=== PATIENT | female | born 1980 | race Caucasian/White ===

== ENCOUNTER 2018-04-13 18:25 | Outpatient (CLI) | payer MEDICAID ==
[2018-04-13 19:27] LABS: ADD UMIC NO; UR ASCORBIC ACID NEGATIVE (NEGATIVE); UR BACTERIA FEW /HPF (NONE SEEN); UR BILIRUBIN (Dip) NEGATIVE (NEGATIVE); UR BLOOD (Dip) NEGATIVE (NEGATIVE); UR CLARITY SLIGHTLY CLOUDY (CLEAR); UR COLOR STRAW (YELLOW); UR GLUCOSE (Dip) 1+ mg/dL (NEGATIVE); UR KETONES (Dip) NEGATIVE (NEGATIVE); UR LEUKOCYTE ESTERASE (Dip) NEGATIVE Leu/ul (NEGATIVE); UR NITRITE (Dip) NEGATIVE (NEGATIVE); UR RBC 0 /HPF (0-5); UR SPECIFIC GRAVITY (Dip) 1.005 (1.003-1.030); UR SQUAMOUS EPITHELIAL CELL MODERATE /HPF (FEW); UR TOTAL PROTEIN (Dip) NEGATIVE (NEGATIVE); UR UROBILINOGEN (Dip) NEGATIVE (NEGATIVE); UR WBC 2 /HPF (0-5)
[2018-04-13 20:29] LABS: ADD MAN DIFF? NO
[2018-04-13 20:32] LABS: BASOPHILS % 0.3 % (0.0-2.0); EOSINOPHILS # 0.1 10^3/ul (0.0-0.5); EOSINOPHILS % 0.9 % (0.0-7.0); HEMATOCRIT 36.7 % (37.0-47.0); HEMOGLOBIN 11.8 g/dl (12.0-16.0); LYMPHOCYTES # 1.3 10^3/ul (0.8-2.9); LYMPHOCYTES % 18.9 % (15.0-51.0); MEAN CORPUSCULAR HEMOGLOBIN 28.9 pg (29.0-33.0); MEAN CORPUSCULAR HGB CONC 32.2 g/dl (32.0-37.0); MEAN CORPUSCULAR VOLUME 89.7 fl (82.0-101.0); MEAN PLATELET VOLUME 11.6 fl (7.4-10.4); MONOCYTE # 0.6 10^3/ul (0.3-0.9); MONOCYTES % 9.7 % (0.0-11.0); NEUTROPHIL # 4.6 10^3/ul (1.6-7.5); NEUTROPHILS % 69.7 % (39.0-77.0); PLATELET COUNT 198 10^3/UL (140-415); RED BLOOD COUNT 4.09 10^6/ul (4.20-5.40); RED CELL DISTRIBUTION WIDTH 12.5 % (11.5-14.5)
[2018-04-13 20:32] LABS: WHITE BLOOD COUNT 6.6 10^3/ul (4.8-10.8)
[2018-04-13 20:50] LABS: INR 0.83; PROTIME 11.5 Sec (11.9-14.9); PT RATIO 0.9
[2018-04-13 20:51] LABS: ALANINE AMINOTRANSFERASE 7 IU/L (13-69); ALBUMIN 3.5 g/dl (3.3-4.9); ALBUMIN/GLOBULIN RATIO 1.09; ALKALINE PHOSPHATASE 222 IU/L (42-121); ANION GAP 11 (5-13); ASPARTATE AMINO TRANSFERASE 29 IU/L (15-46); BILIRUBIN,INDIRECT 0.1 mg/dl (0-1.1); BILIRUBIN,TOTAL 0.1 mg/dl (0.2-1.3); BLOOD UREA NITROGEN 8 mg/dl (7-20); CALCIUM 9.7 mg/dl (8.4-10.2); CARBON DIOXIDE 20 mmol/L (21-31); CHLORIDE 105 mmol/L (97-110); CREATININE 0.65 mg/dl (0.44-1.00); Estimated GFR > 60 mL/min (>60); GLUCOSE 109 mg/dl (70-220); PARTIAL THROMBOPLASTIN TIME 25.2 Sec (23.0-35.0); POTASSIUM 3.7 mmol/L (3.5-5.1); SODIUM 136 mmol/L (135-144); TOTAL PROTEIN 6.7 g/dl (6.1-8.1); URIC ACID 5.3 mg/dl (3.1-7.9)
== END 2018-04-13 21:55 | disposition home or self-care (01) ==
LOC: OBT 18:25 → L-D 18:28 → OBT 21:55
DX: O13.3 Gestational [pregnancy-induced] hypertension without significant proteinuria, third trimester (principal); O09.513 Supervision of elderly primigravida, third trimester
CPT/HCPCS: 76818; 80053; 81001; 81003; 84560; 85025; 85610; 85730

== ENCOUNTER 2018-04-20 18:06 | Inpatient (IN) | payer MEDICAID ==
[2018-04-20 19:02] LABS: ADD MAN DIFF? NO
[2018-04-20 19:03] LABS: BASOPHILS % 0.2 % (0.0-2.0); EOSINOPHILS # 0.1 10^3/ul (0.0-0.5); EOSINOPHILS % 1.6 % (0.0-7.0); HEMATOCRIT 36.9 % (37.0-47.0); HEMOGLOBIN 11.6 g/dl (12.0-16.0); LYMPHOCYTES # 1.1 10^3/ul (0.8-2.9); LYMPHOCYTES % 20.3 % (15.0-51.0); MEAN CORPUSCULAR HEMOGLOBIN 28.7 pg (29.0-33.0); MEAN CORPUSCULAR HGB CONC 31.4 g/dl (32.0-37.0); MEAN CORPUSCULAR VOLUME 91.3 fl (82.0-101.0); MEAN PLATELET VOLUME 11.7 fl (7.4-10.4); MONOCYTE # 0.5 10^3/ul (0.3-0.9); NEUTROPHIL # 3.7 10^3/ul (1.6-7.5); NEUTROPHILS % 68.4 % (39.0-77.0); PLATELET COUNT 186 10^3/UL (140-415); RED BLOOD COUNT 4.04 10^6/ul (4.20-5.40); RED CELL DISTRIBUTION WIDTH 12.7 % (11.5-14.5)
[2018-04-20 19:03] LABS: WHITE BLOOD COUNT 5.5 10^3/ul (4.8-10.8)
[2018-04-20 19:21] LABS: ADD UMIC YES; UR ASCORBIC ACID 20 mg/dL (NEGATIVE); UR BACTERIA FEW /HPF (NONE SEEN); UR BILIRUBIN (Dip) NEGATIVE (NEGATIVE); UR BLOOD (Dip) NEGATIVE (NEGATIVE); UR CLARITY CLOUDY (CLEAR); UR COLOR YELLOW (YELLOW); UR GLUCOSE (Dip) 1+ mg/dL (NEGATIVE); UR KETONES (Dip) NEGATIVE (NEGATIVE); UR LEUKOCYTE ESTERASE (Dip) 1+ Leu/ul (NEGATIVE); UR NITRITE (Dip) NEGATIVE (NEGATIVE); UR RBC 1 /HPF (0-5); UR SQUAMOUS EPITHELIAL CELL MANY /HPF (FEW); UR TOTAL PROTEIN (Dip) NEGATIVE (NEGATIVE); UR UROBILINOGEN (Dip) NEGATIVE (NEGATIVE); UR WBC 6 /HPF (0-5)
[2018-04-20 19:22] LABS: URIC ACID 5.3 mg/dl (3.1-7.9)
[2018-04-20 19:23] LABS: ALANINE AMINOTRANSFERASE 13 IU/L (13-69); ALBUMIN 3.3 g/dl (3.3-4.9); ALKALINE PHOSPHATASE 199 IU/L (42-121); ANION GAP 6 (5-13); ASPARTATE AMINO TRANSFERASE 26 IU/L (15-46); BILIRUBIN,INDIRECT 0.1 mg/dl (0-1.1); BILIRUBIN,TOTAL 0.1 mg/dl (0.2-1.3); BLOOD UREA NITROGEN 9 mg/dl (7-20); CALCIUM 9.3 mg/dl (8.4-10.2); CARBON DIOXIDE 22 mmol/L (21-31); CHLORIDE 111 mmol/L (97-110); CREATININE 0.77 mg/dl (0.44-1.00); Estimated GFR > 60 mL/min (>60); GLUCOSE 139 mg/dl (70-220); SODIUM 139 mmol/L (135-144); TOTAL PROTEIN 6.6 g/dl (6.1-8.1)
[2018-04-20] MEDS ORDERED: AL HYDROX/MG HYDROX/SIMETH 30 ML CUP PO (21:30)
[2018-04-20] MEDS ORDERED: ACETAMINOPHEN 325 MG TAB PO (21:30)
[2018-04-21 08:33] LABS: ADD MAN DIFF? NO
[2018-04-21 08:39] LABS: BASOPHILS % 0.3 % (0.0-2.0); EOSINOPHILS # 0.1 10^3/ul (0.0-0.5); EOSINOPHILS % 1.5 % (0.0-7.0); HEMATOCRIT 36.7 % (37.0-47.0); HEMOGLOBIN 11.6 g/dl (12.0-16.0); LYMPHOCYTES # 1.4 10^3/ul (0.8-2.9); LYMPHOCYTES % 23.1 % (15.0-51.0); MEAN CORPUSCULAR HEMOGLOBIN 29.1 pg (29.0-33.0); MEAN CORPUSCULAR HGB CONC 31.6 g/dl (32.0-37.0); MONOCYTE # 0.5 10^3/ul (0.3-0.9); MONOCYTES % 7.8 % (0.0-11.0); NEUTROPHILS % 66.8 % (39.0-77.0); PLATELET COUNT 197 10^3/UL (140-415); RED BLOOD COUNT 3.99 10^6/ul (4.20-5.40); RED CELL DISTRIBUTION WIDTH 12.7 % (11.5-14.5)
[2018-04-21 08:39] LABS: WHITE BLOOD COUNT 5.9 10^3/ul (4.8-10.8)
[2018-04-21 09:00] LABS: ALANINE AMINOTRANSFERASE 12 IU/L (13-69); ALBUMIN 3.3 g/dl (3.3-4.9); ALKALINE PHOSPHATASE 212 IU/L (42-121); ANION GAP 6 (5-13); ASPARTATE AMINO TRANSFERASE 26 IU/L (15-46); BILIRUBIN,INDIRECT 0.2 mg/dl (0-1.1); BILIRUBIN,TOTAL 0.2 mg/dl (0.2-1.3); BLOOD UREA NITROGEN 10 mg/dl (7-20); CALCIUM 9.2 mg/dl (8.4-10.2); CARBON DIOXIDE 19 mmol/L (21-31); CHLORIDE 111 mmol/L (97-110); CREATININE 0.85 mg/dl (0.44-1.00); Estimated GFR > 60 mL/min (>60); GLUCOSE 75 mg/dl (70-220); POTASSIUM 4.1 mmol/L (3.5-5.1); SODIUM 136 mmol/L (135-144); TOTAL PROTEIN 6.6 g/dl (6.1-8.1); URIC ACID 5.6 mg/dl (3.1-7.9)
[2018-04-21] MEDS: PRENATAL VITAMIN PO (09:00)
[2018-04-21] MEDS ORDERED: OXYTOCIN 30 UNITS/LR 500 ML IV (12:00)
[2018-04-21] MEDS ORDERED: BUTORPHANOL 1 MG INJ IV (12:00)
[2018-04-21] MEDS ORDERED: BUTORPHANOL 2 MG INJ IV (12:00)
[2018-04-21] MEDS ORDERED: CARBOPROST 250 MCG INJ IM (12:00)
[2018-04-21] MEDS ORDERED: MISOPROSTOL 200 MCG TAB PR (12:00)
[2018-04-21] MEDS ORDERED: METHYLERGONOVINE 0.2 MG INJ IM (12:00)
[2018-04-21] MEDS ORDERED: OXYCODONE/ASPIRIN (4.88/325) TAB PO (12:00)
[2018-04-21] MEDS ORDERED: LIDOCAINE 1% (MPF) 30 ML INJ INJ (12:00)
[2018-04-21] MEDS ORDERED: IBUPROFEN 600 MG TAB PO (12:00)
[2018-04-21] MEDS: LACTATED RINGER'S 1,000 ML IV ×2 (12:13→20:34)
[2018-04-21 12:23] LABS: INR 0.87; PROTIME 11.9 Sec (11.9-14.9); PT RATIO 0.9
[2018-04-21 12:24] LABS: PARTIAL THROMBOPLASTIN TIME 26.9 Sec (23.0-35.0)
[2018-04-21] MEDS: AMPICILLIN 2 GM/NS (PMX) 100 ML IV (12:25)
[2018-04-21 14:14] LABS: HEPATITIS B SURFACE ANTIGEN NEGATIVE (NEGATIVE)
[2018-04-21] MEDS: OXYTOCIN 30 UNITS/LR 500 ML IV (14:44)
[2018-04-21] MEDS: AMPICILLIN 1 GM/NS (PMX) 50 ML IV ×2 (16:31→20:34)
[2018-04-21 17:26] LABS: COLLECTION PERIOD 24 hrs
[2018-04-21 18:25] LABS: COLLECTION PERIOD 24 hrs; SCRET 0.85 mg/dl (0.44-1.00); VOLUME 1800 ml/24hrs
[2018-04-21 18:26] LABS: CREATININE CLEARANCE 95.1 mls/min (84.0-162.0); CREATININE,URINE RANDOM 64.68 mg/dl (20-320); VOLUME 1800 mls
[2018-04-21 21:17] LABS: RAPID PLASMA REAGIN NONREACTIVE (NR)
[2018-04-22] MEDS: CEFAZOLIN 2 GM/50 ML (PMX) 50 ML IVPB ×2 (01:00→20:25)
[2018-04-22] MEDS: AMPICILLIN 1 GM/NS (PMX) 50 ML IV ×5 (01:28→17:34)
[2018-04-22] MEDS: LACTATED RINGER'S 1,000 ML IV ×3 (05:31→17:34)
[2018-04-22] MEDS ORDERED: PHENYLephrine (100 MCG/ML) 5ML SYG (07:00)
[2018-04-22] MEDS ORDERED: KETOROLAC 30 MG INJ IV (08:30)
[2018-04-22] MEDS ORDERED: ONDANSETRON 4 MG INJ IV ×2 (08:30→21:00)
[2018-04-22] MEDS ORDERED: DIPHENHYDRAMINE 50 MG INJ IV ×2 (08:30→21:00)
[2018-04-22] MEDS ORDERED: HYDROmorphONE 0.5 MG/0.5 ML SYG IV ×2 (08:30)
[2018-04-22] MEDS ORDERED: NALOXONE (0.4 MG/ML) INJ IV (08:30)
[2018-04-22] MEDS: FENTAnyl 2MCG/ML-ROPIV 0.2% 100 ML BAG EPI (19:00)
[2018-04-22] MEDS ORDERED: METHYLERGONOVINE 0.2 MG INJ IM ×2 (20:00→21:30)
[2018-04-22] MEDS ORDERED: CARBOPROST 250 MCG INJ IM ×2 (20:00→21:30)
[2018-04-22] MEDS ORDERED: MISOPROSTOL 200 MCG TAB PR ×2 (20:00→21:30)
[2018-04-22] MEDS ORDERED: OXYTOCIN 30 UNITS/LR 500 ML IV ×2 (20:00→21:30)
[2018-04-22] MEDS ORDERED: CEFAZOLIN 2 GM/50 ML (PMX) 50 ML IVPB ×2 (20:02→20:16)
[2018-04-22] MEDS ORDERED: CHLOROPROCAINE 3% (MPF) 20 ML INJ (20:33)
[2018-04-22] MEDS ORDERED: morphine SULFATE/PF (10 MG/10 ML) INJ (20:52)
[2018-04-22] MEDS ORDERED: FENTAnyl 50 MCG/ML VIAL (20:53)
[2018-04-22] MEDS ORDERED: FENTAnyl 50 MCG/ML VIAL IV ×3 (21:00)
[2018-04-22] MEDS ORDERED: HYDROmorphONE 1 MG/5 ML IV SYRINGE IV ×3 (21:00)
[2018-04-22] MEDS ORDERED: METOCLOPRAMIDE 10 MG INJ IV (21:00)
[2018-04-22] MEDS ORDERED: LEVALBUTEROL (NEB) 0.63 MG/3 ML AMP HHN (21:00)
[2018-04-22] MEDS ORDERED: NACL 0.9% 3 ML SYG IV (21:30)
[2018-04-22] MEDS ORDERED: OXYCODONE/ACETAMINOPHEN (5/325) TAB PO (21:30)
[2018-04-22] MEDS: OXYTOCIN 30 UNITS/LR 500 ML IV ×2 (21:59→22:00)
[2018-04-22] MEDS: KETOROLAC 30 MG INJ IV (22:42)
[2018-04-23 01:09] LABS: ALANINE AMINOTRANSFERASE 14 IU/L (13-69); ALBUMIN 2.8 g/dl (3.3-4.9); ALBUMIN/GLOBULIN RATIO 0.96; ALKALINE PHOSPHATASE 190 IU/L (42-121); ANION GAP 6 (5-13); ASPARTATE AMINO TRANSFERASE 31 IU/L (15-46); BILIRUBIN,INDIRECT 0.3 mg/dl (0-1.1); BILIRUBIN,TOTAL 0.3 mg/dl (0.2-1.3); BLOOD UREA NITROGEN 14 mg/dl (7-20); CALCIUM 8.4 mg/dl (8.4-10.2); CARBON DIOXIDE 19 mmol/L (21-31); CHLORIDE 111 mmol/L (97-110); Estimated GFR > 60 mL/min (>60); GLUCOSE 113 mg/dl (70-220); POTASSIUM 4.3 mmol/L (3.5-5.1); SODIUM 136 mmol/L (135-144); TOTAL PROTEIN 5.7 g/dl (6.1-8.1); URIC ACID 7.3 mg/dl (3.1-7.9)
[2018-04-23 01:19] LABS: ADD UMIC YES; UR ASCORBIC ACID NEGATIVE (NEGATIVE); UR BACTERIA FEW /HPF (NONE SEEN); UR BILIRUBIN (Dip) NEGATIVE (NEGATIVE); UR BLOOD (Dip) 3+ mg/dL (NEGATIVE); UR CLARITY CLOUDY (CLEAR); UR COLOR RED (YELLOW); UR GLUCOSE (Dip) 1+ mg/dL (NEGATIVE); UR KETONES (Dip) 1+ mg/dL (NEGATIVE); UR LEUKOCYTE ESTERASE (Dip) NEGATIVE Leu/ul (NEGATIVE); UR NITRITE (Dip) NEGATIVE (NEGATIVE); UR RBC > 182 /HPF (0-5); UR SQUAMOUS EPITHELIAL CELL FEW /HPF (FEW); UR TOTAL PROTEIN (Dip) 2+ mg/dl (NEGATIVE); UR UROBILINOGEN (Dip) NEGATIVE (NEGATIVE); UR WBC 10 /HPF (0-5)
[2018-04-23] MEDS ORDERED: HYDROmorphONE 1 MG/5 ML IV SYRINGE IV ×3 (02:30)
[2018-04-23] MEDS ORDERED: ALBUTEROL 0.083% (NEB) 2.5 MG/3 ML AMP HHN (02:30)
[2018-04-23] MEDS ORDERED: ONDANSETRON 4 MG INJ IV (02:30)
[2018-04-23] MEDS ORDERED: METOCLOPRAMIDE 10 MG INJ IV (02:30)
[2018-04-23] MEDS ORDERED: HYDROmorphONE 0.5 MG/0.5 ML SYG IV (02:30)
[2018-04-23] MEDS ORDERED: KETOROLAC 30 MG INJ IV (02:30)
[2018-04-23] MEDS ORDERED: NALOXONE (0.4 MG/ML) INJ IV (02:30)
[2018-04-23] MEDS ORDERED: FENTAnyl 50 MCG/ML VIAL IV ×3 (02:30)
[2018-04-23] MEDS ORDERED: DIPHENHYDRAMINE 50 MG INJ IV ×2 (02:30)
[2018-04-23] MEDS: OXYTOCIN 30 UNITS/LR 500 ML IV (02:42)
[2018-04-23] MEDS: LACTATED RINGER'S 1,000 ML IV ×4 (03:01→18:58)
[2018-04-23] MEDS: CEFAZOLIN 2 GM/50 ML (PMX) 50 ML IVPB ×2 (05:35→12:58)
[2018-04-23 07:54] LABS: ADD MAN DIFF? NO
[2018-04-23 07:57] LABS: BASOPHILS % 0.1 % (0.0-2.0); HEMATOCRIT 31.1 % (37.0-47.0); LYMPHOCYTES # 1.2 10^3/ul (0.8-2.9); LYMPHOCYTES % 8.7 % (15.0-51.0); MEAN CORPUSCULAR HEMOGLOBIN 29.2 pg (29.0-33.0); MEAN CORPUSCULAR HGB CONC 32.2 g/dl (32.0-37.0); MEAN CORPUSCULAR VOLUME 90.7 fl (82.0-101.0); MEAN PLATELET VOLUME 12.4 fl (7.4-10.4); MONOCYTE # 0.8 10^3/ul (0.3-0.9); MONOCYTES % 5.8 % (0.0-11.0); NEUTROPHIL # 11.7 10^3/ul (1.6-7.5); NEUTROPHILS % 84.9 % (39.0-77.0); PLATELET COUNT 162 10^3/UL (140-415); RED BLOOD COUNT 3.43 10^6/ul (4.20-5.40)
[2018-04-23 07:57] LABS: WHITE BLOOD COUNT 13.8 10^3/ul (4.8-10.8)
[2018-04-23] MEDS: KETOROLAC 30 MG INJ IV (15:56)
[2018-04-23] MEDS: ONDANSETRON 4 MG INJ IV (18:57)
[2018-04-23] MEDS: HYDROmorphONE 0.5 MG/0.5 ML SYG IV (19:46)
[2018-04-23] MEDS: FERROUS SULFATE (EC) 325 MG TAB PO (21:00)
[2018-04-23] MEDS: IBUPROFEN 600 MG TAB PO (23:32)
[2018-04-24] MEDS: LACTATED RINGER'S 1,000 ML IV (03:48)
[2018-04-24] MEDS: IBUPROFEN 600 MG TAB PO ×4 (05:45→23:53)
[2018-04-24] MEDS: FERROUS SULFATE (EC) 325 MG TAB PO ×2 (08:52→21:44)
[2018-04-24] MEDS: OXYCODONE/ACETAMINOPHEN (5/325) TAB PO (14:55)
[2018-04-24] MEDS: DOCUSATE SODIUM 100 MG CAP PO (21:44)
[2018-04-25] MEDS: IBUPROFEN 600 MG TAB PO ×4 (05:57→23:50)
[2018-04-25 08:09] LABS: HEMATOCRIT 28.8 % (37.0-47.0); HEMOGLOBIN 9.3 g/dl (12.0-16.0)
[2018-04-25] MEDS: FERROUS SULFATE (EC) 325 MG TAB PO ×2 (09:00→21:12)
[2018-04-25] MEDS: DOCUSATE SODIUM 100 MG CAP PO ×2 (09:21→21:12)
[2018-04-26] MEDS: IBUPROFEN 600 MG TAB PO ×2 (05:41→11:54)
[2018-04-26] MEDS: FERROUS SULFATE (EC) 325 MG TAB PO (09:20)
[2018-04-26] MEDS: DOCUSATE SODIUM 100 MG CAP PO (09:23)
== END 2018-04-26 13:10 | disposition home or self-care (01) | DRG 788 ==
LOC: OBT 18:06 → L-D 04-21 11:00 → PP1 04-23 00:47 → L-D 18:07 → OBT 20:10 → L-D 20:10 → PP1 23:21
PROC: 10D00Z1 Extraction of Products of Conception, Low, Open Approach (ICD-10-PCS; principal; 2018-04-23)
DX: O13.4 Gestational [pregnancy-induced] hypertension without significant proteinuria, complicating childbirth (principal); O34.29 Maternal care due to uterine scar from other previous surgery; O99.214 Obesity complicating childbirth; Z3A.37 37 weeks gestation of pregnancy; Z37.0 Single live birth
CPT/HCPCS: 62319; 76815; 76818; 80053; 81001; 82575; 84156; 84560; 85014; 85018; 85025; 85384; 85610; 85730; 86592; 86850; 86900; 86901; 87340; 99464; J2400